=== PATIENT | male | born 1995 | race Caucasian/White ===

== ENCOUNTER 2016-12-29 17:40 | Emergency (ER) | payer SELFPAY ==
[~2016-12-29] VITALS: Ht 175.3 cm; Wt 95.3 kg
[~2016-12-29 17:40] MED LIST: [UNRECOGNIZED DRUG - CODE] PO
[2016-12-29 18:59] VITALS: BP 126/71
[2016-12-29 19:19] VITALS: BP 151/95
--- NOTE | 2016-12-29 19:56 | NUR ---
Joey olmos in ED - 12/29/16 at 2024 by ECHO PATIENT LEFT WITHOUT BEING SEEN BY DR. TRAVIS. NO FURTHER CARE PROVIDED FOR PATIENT.
[2016-12-29 21:01] LABS: APPEARANCE,URINE CLEAR (CLEAR); BILIRUBIN,URINE NEGATIVE (NEGATIVE); BLOOD, URINE NEGATIVE (NEGATIVE); COLOR,URINE ORANGE (YELLOW); LEUKOCYTE ESTERASE ,URINE NEGATIVE (NEGATIVE); NITRITE, URINE NEGATIVE (NEGATIVE); PH,URINE 6.5 (5.0-9.0); PROTEIN,URINE NEGATIVE (NEGATIVE); UGLUCOSE NEGATIVE (NEGATIVE); UROBILINOGEN,URINE 0.2 EU/dL (0.2 - 1)
[2016-12-29 21:05] LABS: BACTERIA,URINE None Seen /HPF (None Seen); RBC,URINE NONE SEEN /HPF (0-5); SQUAMOUS EPITHELIAL CELL,UR None Seen /LPF (0-3 (FEW)); WBC,URINE NONE SEEN /HPF (0-5)
[2016-12-29 21:15] VITALS: BP 151/95
--- NOTE | 2016-12-29 21:15 | NUR ---
PT STATES HE HAS SOME TYPE OF GROWTH THE SIZE OF A DIME ON THE TIP OF HIS PENIS WHICH IS VERY PAINFUL WHICH TOUCHED AND UPON URINATION, 03/19 PT DENIES N/V/D; SKIN IS PINK/WARM/DRY; AAOX4 WITH EVEN AND STEADY GAIT; LUNGS CLEAR BL; HR EVEN AND REGULAR; PT DENIES ANY FEVER, CP, SOB, OR COUGH AT THIS TIME; VSS; PATIENT POSITIONED FOR COMFORT; HOB ELEVATED; BEDRAILS UP X2; BED DOWN. ER MD MADE AWARE OF PT STATUS.
--- NOTE | 2016-12-29 22:09 | NUR ---
DR TRAVIS AT BEDSIDE
[2017-01-02 06:14] LABS: CHLAMYDIA TRACHOMATIS AMP DNA Negative (Negative)
== END 2016-12-29 22:23 | disposition home or self-care (01) ==
LOC: MED 17:40
DX: N47.6 Balanoposthitis (principal); J45.909 Unspecified asthma, uncomplicated
CPT/HCPCS: 36415; 81001; 87491; 99284

== ENCOUNTER 2017-05-07 14:03 | Emergency (ER) | payer OTHER ==
[~2017-05-07] VITALS: Ht 175.3 cm; Wt 95.3 kg
[2017-05-07 14:06] VITALS: BP 153/83
--- NOTE | 2017-05-07 14:11 | NUR ---
Patient ambulated to bed 8. RN evaluating patient at bedside.
--- NOTE | 2017-05-07 14:20 | NUR ---
22M BIB SELF C/O ABSCESS TO LEFT UPPER ARM X 2 DAYS;DENIES N/V/D; SKIN IS PINK/WARM/DRY; AAOX4 WITH EVEN AND STEADY GAIT; LUNGS CLEAR BL; HR EVEN AND REGULAR; PT DENIES ANY FEVER, CP, SOB, OR COUGH AT THIS TIME; PATIENT STATES PAIN OF 6/10 AT THIS TIME; VSS; PATIENT POSITIONED FOR COMFORT; HOB ELEVATED; BEDRAILS UP X2; BED DOWN. ER MD MADE AWARE OF PT STATUS.
--- NOTE | 2017-05-07 14:30 | NUR ---
OVI Hopkins evaluating patient at bedside.
--- NOTE | 2017-05-07 14:30 | NUR ---
NELSON DIOR BY BEDSIDE PERFORMING I&D; PATIENT TOLERATED WELL
[2017-05-07] MEDS ORDERED: LIDOCAINE 1% ED 50 ML ONE (14:39)
[2017-05-07] MEDS: LIDOCAINE 1% 500 MG/50 ML VIAL INJ ONE (14:55)
[2017-05-07 15:02] VITALS: BP 125/70
--- NOTE | 2017-05-07 15:02 | NUR ---
Patient discharged with v/s stable. Written and verbal after care instructions given and explained. Patient alert, oriented and verbalized understanding of instructions. Ambulatory with steady gait. All questions addressed prior to discharge. ID band removed. Patient advised to follow up with PMD. Rx of MOtrin and Keflex given. Patient educated on indication of medication including possible reaction and side effects. Opportunity to ask questions provided and answered.
== END 2017-05-07 15:02 | disposition home or self-care (01) ==
LOC: MED 14:03
DX: S40.861A Insect bite (nonvenomous) of right upper arm, initial encounter (principal); L02.413 Cutaneous abscess of right upper limb; W57.XXXA Bitten or stung by nonvenomous insect and other nonvenomous arthropods, initial encounter; Y93.89 Activity, other specified; Y92.89 Other specified places as the place of occurrence of the external cause; Y99.8 Other external cause status
CPT/HCPCS: 10060; 87070; 87075; 87186; 87205; 99283; J2001

== ENCOUNTER 2017-05-09 14:03 | Emergency (ER) | payer OTHER ==
[~2017-05-09] VITALS: Ht 175.3 cm; Wt 95.3 kg
[2017-05-09 15:11] VITALS: BP 144/96
--- NOTE | 2017-05-09 15:20 | NUR ---
PT PRESENTS TO ER FOR WOUND RECHECK TO LEFT UPPER ARM S/P PACKING. HX ASTHMA. DENIES N/V/D; SKIN IS PINK/WARM/DRY; AAOX4 WITH EVEN AND STEADY GAIT; LUNGS CLEAR BL; HR EVEN AND REGULAR; PT DENIES ANY FEVER, CP, SOB, OR COUGH AT THIS TIME; PATIENT STATES PAIN OF 5/10 AT THIS TIME; VSS; PATIENT POSITIONED FOR COMFORT; HOB ELEVATED; BEDRAILS UP X2; BED DOWN. ER MD MADE AWARE OF PT STATUS.
[2017-05-09 15:56] VITALS: BP 136/86
--- NOTE | 2017-05-09 15:56 | NUR ---
Patient discharged with v/s stable. Written and verbal after care instructions given and explained. Patient verbalized understanding. Ambulatory with steady gait. All questions addressed prior to discharge. Advised to follow up with PMD.
== END 2017-05-09 15:56 | disposition home or self-care (01) ==
LOC: MED 14:03
DX: Z48.01 Encounter for change or removal of surgical wound dressing (principal)
CPT/HCPCS: 99282; 99283

== ENCOUNTER 2017-05-11 11:10 | Emergency (ER) | payer OTHER ==
[~2017-05-11] VITALS: Ht 175.3 cm; Wt 95.3 kg
[2017-05-11 11:24] VITALS: BP 157/71
[2017-05-11 12:16] VITALS: BP 157/71
== END 2017-05-11 12:16 | disposition home or self-care (01) ==
LOC: MED 11:10
DX: Z48.01 Encounter for change or removal of surgical wound dressing (principal); J45.909 Unspecified asthma, uncomplicated; Z79.899 Other long term (current) drug therapy
CPT/HCPCS: 99281